=== PATIENT | female | born 1970 | race Caucasian/White ===

== ENCOUNTER 2019-10-20 07:51 | Observation (INO) ==
[2019-10-20 08:56] LABS: Troponin I < 0.015 NG/ML (0.00-0.045)
[2019-10-20 09:03] LABS: Basophils % 0.6 % (0.0-0.8); Eosinophils # 0.1 10*3/uL (0.0-0.87); Eosinophils % 1.4 % (0.00-10.9); Hematocrit 45.3 VOL% (35.7-47.0); Hemoglobin 14.7 GM/DL (12.0-16.0); Immature Granulocytes % 0.8 %; Immature Granulocytes Absolute 0.04 #; Lymphocytes # 0.7 10*3/uL (1.4-4.0); Lymphocytes % 13.5 % (21.3-54.2); Mean Corpuscular HGB Conc 32.5 GM/DL (32-36); Mean Corpuscular Volume 96.2 FL (87-102); Mean Platelet Volume 10.8 FL (9.6-12.0); Monocytes % 8.1 % (1.7-12.7); Neutrophils % 75.6 % (38.7-73.9); Platelet Count 299 T/CUMM (130-400); Red Blood Count 4.71 MC/CUMM (3.8-5.5); Red Cell Distribution Width 12.7 % (9.3-17.3)
[2019-10-20 09:11] LABS: Calcium 9.3 MG/DL (8.5-10.1); Osmolality,Calculated 278.7 MOS/KG (273-304)
[2019-10-20] MEDS ORDERED: ONDANSETRON 4 MG/2 ML VIAL IV PRN (09:58)
[2019-10-20] MEDS ORDERED: NITROGLYCERIN SL 0.4 MG TABLET SL PRN (09:58)
[2019-10-20] MEDS ORDERED: DOCUSATE SODIUM 100 MG CAPSULE PO PRN (09:58)
[2019-10-20] MEDS ORDERED: ACETAMINOPHEN 325 MG TABLET PO PRN (09:58)
[2019-10-20] MEDS: METOPROLOL TARTRATE 25 MG TABLET PO SCH ×2 (10:33→21:10)
[2019-10-20] MEDS: ENOXAPARIN 40 MG/0.4 ML SYRINGE SUBCUT SCH (10:35)
[2019-10-20 10:45] LABS: Risk Ratio 3.8; Thyroid Stimulating Hormone 2.26 uIU/ml (0.358-3.74); VLDL CHOLESTEROL 21.4 MG/DL
[2019-10-20] MEDS: MYCOPHENOLATE MOFETIL 250 MG CAPSULE PO SCH (21:12)
[2019-10-20] MEDS: BRIMONIDINE BOTH EYES SCH (21:12)
[2019-10-20] MEDS: LOTEPREDNOL ETABONATE BOTH EYES SCH (21:12)
[2019-10-20] MEDS: DORZOLAMIDE TIMOLOL BOTH EYES SCH (21:12)
[2019-10-21 04:37] LABS: Basophils # 0.1 10*3/uL (0.0-0.2); Eosinophils # 0.1 10*3/uL (0.0-0.87); Eosinophils % 2.8 % (0.00-10.9); Hematocrit 42.1 VOL% (35.7-47.0); Hemoglobin 13.9 GM/DL (12.0-16.0); Immature Granulocytes Absolute 0.05 #; Lymphocytes # 1.2 10*3/uL (1.4-4.0); Lymphocytes % 23.6 % (21.3-54.2); Mean Corpuscular Volume 95.5 FL (87-102); Mean Platelet Volume 10.8 FL (9.6-12.0); Monocytes % 14.1 % (1.7-12.7); Neutrophils % 57.5 % (38.7-73.9); Platelet Count 301 T/CUMM (130-400); Red Blood Count 4.41 MC/CUMM (3.8-5.5); Red Cell Distribution Width 12.9 % (9.3-17.3)
[2019-10-21 05:04] LABS: Calcium 9.1 MG/DL (8.5-10.1)
[2019-10-21] MEDS ORDERED: PANTOPRAZOLE 40 MG TABLET PO SCH (09:00)
[2019-10-21] MEDS ORDERED: ASPIRIN CHEW 81 MG TABLET PO SCH (09:00)
[2019-10-21] MEDS ORDERED: FLUoxetine 20 MG CAPSULE PO SCH (09:00)
[2019-10-21] MEDS: ENOXAPARIN 40 MG/0.4 ML SYRINGE SUBCUT SCH (09:12)
[2019-10-21] MEDS: MYCOPHENOLATE MOFETIL 250 MG CAPSULE PO SCH (09:12)
[2019-10-21] MEDS: METOPROLOL TARTRATE 25 MG TABLET PO SCH (09:13)
[2019-10-21] MEDS: BRIMONIDINE BOTH EYES SCH (09:14)
[2019-10-21] MEDS: LOTEPREDNOL ETABONATE BOTH EYES SCH (09:14)
[2019-10-21] MEDS: DORZOLAMIDE TIMOLOL BOTH EYES SCH (09:14)
[2019-10-21] MEDS ORDERED: SODIUM CHLORIDE 0.9% 500 ML IV ONE ×2 (11:13→15:06)
[2019-10-21 17:08] VITALS: BP 125/56
[2019-10-22] MEDS ORDERED: predniSONE 10 MG TABLET PO SCH (08:00)
== END 2019-10-21 16:58 | disposition home or self-care (01) ==
LOC: N.EDINP 07:51 → N.ED 07:51 → N.EDINP 12:30 → N.TELEN 12:41
PROVIDERS: ADMIT Hospitalist; ATTEND Hospitalist